=== PATIENT | male | born 1980 | race Caucasian/White ===

== ENCOUNTER 2021-11-20 14:14 | Emergency (ER) | payer OTHER | END 2021-11-20 21:33 | disposition home or self-care (01) | LOC: ER1 14:14 | DX: S01.511A Laceration without foreign body of lip, initial encounter (principal); V86.49XA Person injured while boarding or alighting from other special all-terrain or other off-road motor vehicle, initial encounter; Y92.412 Parkway as the place of occurrence of the external cause | CPT/HCPCS: 12011; 99282 ==